=== PATIENT | female | born 1965 | race Two or more races ===

== ENCOUNTER → 2017-06-08 | Outpatient (CLI) | payer BC | END | disposition home or self-care (01) | LOC: HKI 15:21 | DX: M25.512 Pain in left shoulder (principal); M75.22 Bicipital tendinitis, left shoulder | CPT/HCPCS: 73030; 73030-LT ==

== ENCOUNTER 2018-01-06 09:49 | Day surgery (SDC) | payer BC ==
[2018-01-06] MEDS ORDERED: FENTAnyl 50 MCG/ML VIAL (10:58)
[2018-01-06] MEDS ORDERED: MIDAZOLAM 1 MG/ML 2 ML INJ ×2 (10:59)
== END 2018-01-06 16:56 | disposition home or self-care (01) ==
LOC: GIL 09:49
DX: Z12.11 Encounter for screening for malignant neoplasm of colon (principal); K64.4 Residual hemorrhoidal skin tags
CPT/HCPCS: 45378